=== PATIENT | female | born 1950 | race Caucasian/White ===

== ENCOUNTER 2022-07-14 09:54 | Outpatient (CLI) | payer MEDICARE | END 2022-07-14 09:55 | disposition home or self-care (01) | LOC: CSHMAMMO 09:54 | PROVIDERS: ATTEND Internal Medicine | DX: Z12.31 Encounter for screening mammogram for malignant neoplasm of breast (principal); Z13.820 Encounter for screening for osteoporosis; Z78.0 Asymptomatic menopausal state; Z85.09 Personal history of malignant neoplasm of other digestive organs | CPT/HCPCS: 77063; 77067; 77080 ==

== ENCOUNTER 2023-07-28 12:00 | Outpatient (CLI) | payer MEDICARE | END 2023-07-28 12:01 | disposition home or self-care (01) | LOC: CSHMAMMO 12:00 | PROVIDERS: ATTEND Internal Medicine | DX: Z12.31 Encounter for screening mammogram for malignant neoplasm of breast (principal); Z80.3 Family history of malignant neoplasm of breast; Z85.09 Personal history of malignant neoplasm of other digestive organs | CPT/HCPCS: 77063; 77067 ==

== ENCOUNTER 2024-08-19 10:32 | Outpatient (CLI) | payer MEDICARE | END 2024-08-19 10:33 | disposition home or self-care (01) | LOC: CSHMAMMO 10:32 | PROVIDERS: ATTEND Internal Medicine | DX: Z12.31 Encounter for screening mammogram for malignant neoplasm of breast (principal); Z80.3 Family history of malignant neoplasm of breast; Z85.00 Personal history of malignant neoplasm of unspecified digestive organ | CPT/HCPCS: 77063; 77067 ==